=== PATIENT | female | born 1940 | race Caucasian/White ===

== ENCOUNTER 2023-05-19 12:27 | Outpatient (CLI) | payer MEDICARE, OTHER | END 2023-05-19 12:28 | disposition home or self-care (01) | LOC: CSHLAB 12:27 | PROVIDERS: ATTEND Otolaryngology Plastic Surgery within the Head & Neck | DX: Z01.818 Encounter for other preprocedural examination (principal); D35.1 Benign neoplasm of parathyroid gland; E21.3 Hyperparathyroidism, unspecified | CPT/HCPCS: 93005; 93010 ==

== ENCOUNTER 2023-05-23 08:22 | Day surgery (SDC) | payer MEDICARE, OTHER ==
[2023-05-19 12:54] VITALS: BMI 32.8
[2023-05-23] MEDS ORDERED: PROPOFOL 20 ML ONE (13:04)
[2023-05-23] MEDS ORDERED: fentaNYL 50 mcg/mL 1 mL Vial ONE (13:04)
[2023-05-23] MEDS ORDERED: Lidocaine 1% PF 5 ML VIAL ONE (13:05)
[2023-05-23] MEDS ORDERED: CEFAZOLIN 2 GM VIAL ONE (13:12)
[2023-05-23] MEDS ORDERED: SUGAMMADEX SODIUM 200 MG/2 ML VIAL ONE (13:14)
[2023-05-23] MEDS ORDERED: Rocuronium Bromide 10 MG/ML (10ML VIAL) ONE (13:15)
[2023-05-23] MEDS ORDERED: ePHEDrine Sulfate 50 MG/10 ML VIAL ONE (13:28)
[2023-05-23] MEDS ORDERED: Ondansetron PF 4 MG/2 ML Vial ONE (13:58)
[2023-05-23] MEDS ORDERED: Dexamethasone 4 mg/ml Vial ONE (13:58)
[2023-05-23] MEDS ORDERED: HYDROmorphone 0.5 MG/0.5 ML SYRINGE ONE (14:18)
== END 2023-05-23 15:40 | disposition home or self-care (01) ==
LOC: CSHSDC 08:22
PROVIDERS: ATTEND Otolaryngology Plastic Surgery within the Head & Neck
PROC: 0GTN0ZZ Resection of Right Inferior Parathyroid Gland, Open Approach (ICD-10-PCS; principal; 2023-05-23)
DX: D35.1 Benign neoplasm of parathyroid gland (principal); E21.3 Hyperparathyroidism, unspecified; I10 Essential (primary) hypertension; E11.9 Type 2 diabetes mellitus without complications; Z98.49 Cataract extraction status, unspecified eye; Z90.49 Acquired absence of other specified parts of digestive tract; Z90.710 Acquired absence of both cervix and uterus
CPT/HCPCS: 60500; 83970; J3010; J1100; J1170; J2405; J2704